=== PATIENT | female | born 1995 | race Caucasian/White ===

== ENCOUNTER 2017-03-31 05:54 | Emergency (ER) | payer OTHER ==
[2017-03-31 05:56] VITALS: BP 150/70; PULSE 130; RESP 18; TEMP 97.5; O2SAT 100
[2017-03-31] MEDS ORDERED: MORPHINE SULFATE 4 MG/ML INJ IM ONE (06:15)
[2017-03-31] MEDS ORDERED: SULFAMETHOXAZOLE-TRIMETHOPRIM DS 800-160 MG TAB PO ONE (06:15)
[2017-03-31] MEDS ORDERED: BACT800T5 PO (06:18)
[2017-03-31] MEDS ORDERED: ULTR50TA5 PO (06:18)
--- NOTE | 2017-03-31 06:19 | PD ---
HPI . Left cheek pain Chief Complaint: Facial Pain or Swelling Time Seen by Provider: 06:10 Travel History International Travel<30 days: No Contact w/Intl Traveler<30days: No Traveled to known affect area: No History of Present Illness HPI This patient presents with chief complaint of pain and swelling of the left cheek. Onset was 24 hours ago. She states that both the pain and swelling have been getting progressively worse over 4 hours. She now rates the pain as 10/10. She states that she has treated it with Neosporin and aspirin without relief. She denies fever. No modifying factors. PFSH Past Medical History ADHD: No Asthma: Yes Weight (Kg): 3 Anxiety: Yes Cancer: No Cardiovascular Problems: No Diabetes: No Diminished Hearing: No Headaches: No Psychiatric: No Migraines: No Seizures: No Thyroid Disease: No Ulcer: No ?: Not : 0 Para: 0 Past Surgical History Appendectomy: Yes Cholecystectomy: No Other Surgery: Yes (APPENDIX REMOVED) Social History Alcohol Use: No Tobacco Use: No Substance Use: Yes Allergies-Medications (Allergen,Severity, Reaction): Coded Allergies: acetaminophen (Unverified Allergy, Unknown, 03/31/17) Reported Meds & Prescriptions Reported Meds & Active Scripts Active No Active Prescriptions or Reported Medications Review of Systems Except as stated in HPI: all other systems reviewed are Neg General / Constitutional: No: Fever, Chills Skin: Positive Change in Pigmentation, Positive Other (swelling of the left cheek) Physical Exam Narrative GENERAL: This patient is extremely anxious appearing. She is tearful. SKIN: Redness, swelling, warmth and tenderness of the left cheek. There is no fluctuance. HEAD: Normocephalic/atraumatic. EYES: Pupils are equal. Extraocular movements are intact. NECK: Supple with no cervical lymphadenopathy. CARDIOVASCULAR: Sinus tachycardia. RESPIRATORY: Nonlabored respirations. MUSCULOSKELETAL: Atraumatic. NEUROLOGICAL: Nonfocal. PSYCHIATRIC: Appropriate mood and affect. Data Data Last Documented VS Vital Signs Date Time Temp Pulse Resp B/P (MAP) Pulse Ox O2 Delivery O2 Flow Rate FiO2 03/31/17 05:56 97.5 130 18 150/70 (96) 100 Room Air Orders Orders Morphine Inj (Morphine Inj) (03/31/17 06:15) Sulfamet-Trimeth Ds 800-160 Mg (Bactrim (03/31/17 06:15) [facility] Medical Decision Making Medical Screen Exam Complete: Yes Emergency Medical Condition: Yes Differential Diagnosis My differential diagnosis includes but is not limited to localized wound infection, cellulitis, abscess Narrative Course This patient presents with an early abscess of the left cheek. It is not yet ready to be drained. I will treat her with Bactrim. She is extremely anxious and is complaining of severe pain. I will give her a shot of morphine. She reports that she cannot take Tylenol because of liver issues. Diagnosis Primary Impression: Abscess Patient Instructions: Abscess (ED), General Instructions Additional Instructions: Warm compresses to your cheek as much as she can. Return in 2 days for recheck. Antibiotics as directed. Scripts Tramadol (Ultram) 50 Mg Tab 50 MG PO Q4H Y for PAIN, #12 TAB 0 Refills Prov: Mylene Ramirez MD 03/31/17 Sulfamethoxazole-Trimethoprim (Bactrim DS) 800-160 Mg Tab 1 TAB PO BID for Infection, #20 TAB 0 Refills Prov: Mylene Ramirez MD 03/31/17 Disposition: 01 DISCHARGE HOME Condition: Stable Mylene Ramirez MD Mar 31, 2017 06:19
== END 2017-03-31 06:31 | disposition home or self-care (01) ==
LOC: NEPE 05:54
DX: L02.01 Cutaneous abscess of face (principal); J45.909 Unspecified asthma, uncomplicated
CPT/HCPCS: 96372; 99284; J2270

== ENCOUNTER 2017-04-01 17:21 | Inpatient (IN) | payer OTHER ==
[~2017-04-01] VITALS: Ht 170.2 cm; Wt 70.0 kg
[~2017-04-01 17:21] MED LIST: BACT800T5 PO; ULTR50TA5 PO
[2017-04-01 17:24] VITALS: BP 137/98; PULSE 145; RESP 22; TEMP 99.7; O2SAT 99
[2017-04-01] MEDS ORDERED: VANCOMYCIN INJ 1,000 MG in SODIUM CHLOR 0.9% 250 ML INJ 250 ML IV ONE (18:15)
[2017-04-01] MEDS ORDERED: KETOROLAC TROMETHAMINE 30 MG/ML (IVP) VIAL IVP ONE (18:15)
[2017-04-01 18:45] LABS: AUTOMATED NEUTROPHIL # 12.5 TH/MM3 (1.8-7.7); BASOPHIL # 0.1 TH/MM3 (0-0.2); BASOPHIL % 0.4 % (0.0-2.0); EOSINOPHIL # 0.1 TH/MM3 (0-0.4); EOSINOPHIL % 0.8 % (0.0-4.0); HEMATOCRIT 42.5 % (35.0-46.0); HEMO FLAGS DIFF FINAL; LYMPH % 12.6 % (9.0-44.0); MEAN CELL VOLUME 91.2 FL (80.0-100.0); MEAN CORPUSCULAR HEMOGLOBIN 30.1 PG (27.0-34.0); MEAN CORPUSCULAR HGB CONC 33.1 % (32.0-36.0); MONO % 8.4 % (0.0-8.0); NEUT % 77.8 % (16.0-70.0); PLATELET COUNT 413 TH/MM3 (150-450); RED BLOOD COUNT 4.66 MIL/MM3 (4.00-5.30); RED CELL DISTRIBUTION WIDTH 13.5 % (11.6-17.2); WHITE BLOOD COUNT 16.1 TH/MM3 (4.0-11.0)
--- NOTE | 2017-04-01 18:49 | PD ---
HPI Chief Complaint: Skin Problem Time Seen by Provider: 18:06 Travel History International Travel<30 days: No Contact w/Intl Traveler<30days: No Traveled to known affect area: No History of Present Illness HPI This is a 21-year-old female history bipolar disorder, presents today with slight worsening swelling and redness to the left face. Patient was seen yesterday at the hospital and diagnosed with a superficial skin abscess. She was started on Bactrim. She reports over last 24 hours she's had at least double of the swelling with redness running down her neck. She denies any fevers, chills or denies any difficulty swallowing. She has no history of previous MRSA. She states that the infection started as a excoriated area that seemingly became infected. PFSH Past Medical History ADHD: No Asthma: Yes Weight (Kg): 3 Anxiety: Yes Cancer: No Cardiovascular Problems: No Diabetes: No Diminished Hearing: No Headaches: No Psychiatric: No Migraines: No Seizures: No Thyroid Disease: No Ulcer: No ?: Not : 0 Para: 0 Past Surgical History Appendectomy: Yes Cholecystectomy: No Other Surgery: Yes (APPENDIX REMOVED) Social History Alcohol Use: Yes (on occasion) Tobacco Use: No Substance Use: No (denies) Allergies-Medications (Allergen,Severity, Reaction): Coded Allergies: acetaminophen (Unverified Allergy, Unknown, 03/31/17) Reported Meds & Prescriptions Reported Meds & Active Scripts Active Ultram (Tramadol HCl) 50 Mg Tab 50 Mg PO Q4H PRN Bactrim DS (Sulfamethoxazole-Trimethoprim) 800-160 Mg Tab 1 Tab PO BID Review of Systems Except as stated in HPI: all other systems reviewed are Neg General / Constitutional: No: Fever, Chills Eyes: Positive: Other (orbital swelling and redness) HENT: Positive: Other (increased swelling and pain and redness to the left side of her face and periorbital swelling.), No: Headaches, Neck Pain, Masses Cardiovascular: No: Chest Pain or Discomfort, Palpitations Respiratory: No: Cough, Shortness of Breath Gastrointestinal: No: Nausea, Vomiting Musculoskeletal: No: Myalgias, Weakness, Pain Skin: Positive Lesions (to the left cheek that started the infection), Positive Other (sialitis to the left face and neck), No Rash Neurologic: No: Weakness, Dizziness, Headache Physical Exam Narrative GENERAL: Well developed well-nourished female who has obvious cellulitis and swelling to her left side of her face which extends to the left lower neck. SKIN: Focused skin assessment warm/dry. Cellulitis and swelling to left face and neck. HEAD: Atraumatic. Normocephalic. EYES: Pupils equal and round. Patient does have periorbital edema from the cellulitis. Extraocular muscles were intact. There does not appear to be any proptosis. No scleral icterus. No injection or drainage. ENT: Mucous membranes pink and moist. NECK: Trachea midline. Cellulitis to the left lateral neck. Supple full range of motion. CARDIOVASCULAR: Tachycardic with a rate in the low 100s 120 on my examination. No murmur appreciated. RESPIRATORY: No accessory muscle use. Clear to auscultation. Breath sounds equal bilaterally. GASTROINTESTINAL: Abdomen soft, non-tender, nondistended. Hepatic and splenic margins not palpable. MUSCULOSKELETAL: No obvious deformities. No clubbing. No cyanosis. No edema. NEUROLOGICAL: Awake and alert. No obvious cranial nerve deficits. Motor grossly within normal limits. Normal speech. PSYCHIATRIC: Appropriate mood and affect; insight and judgment normal. Data Data Last Documented VS Vital Signs Date Time Temp Pulse Resp B/P (MAP) Pulse Ox O2 Delivery O2 Flow Rate FiO2 04/01/17 17:57 120 19 04/01/17 17:24 99.7 137/98 (111) 99 Orders Orders Basic Metabolic Panel (Bmp) (04/01/17 18:06) Complete Blood Count With Diff (04/01/17 18:06) Blood Culture (04/01/17 18:06) Iv Access Insert/Monitor (04/01/17 18:06) Ketorolac Inj (Toradol Inj) (04/01/17 18:15) Vancomycin Inj (Vancomycin Inj) (04/01/17 18:15) Ct Soft Tiss Neck W Iv Cont (04/01/17 ) Labs Laboratory Tests Test 04/01/17 18:30 White Blood Count 16.1 TH/MM3 Red Blood Count 4.66 MIL/MM3 Hemoglobin 14.0 GM/DL Hematocrit 42.5 % Mean Corpuscular Volume 91.2 FL Mean Corpuscular Hemoglobin 30.1 PG Mean Corpuscular Hemoglobin Concent 33.1 % Red Cell Distribution Width 13.5 % Platelet Count 413 TH/MM3 Mean Platelet Volume 9.5 FL Neutrophils (%) (Auto) 77.8 % Lymphocytes (%) (Auto) 12.6 % Monocytes (%) (Auto) 8.4 % Eosinophils (%) (Auto) 0.8 % Basophils (%) (Auto) 0.4 % Neutrophils # (Auto) 12.5 TH/MM3 Lymphocytes # (Auto) 2.0 TH/MM3 Monocytes # (Auto) 1.3 TH/MM3 Eosinophils # (Auto) 0.1 TH/MM3 Basophils # (Auto) 0.1 TH/MM3 CBC Comment DIFF FINAL Differential Comment MDM Medical Decision Making Medical Screen Exam Complete: Yes Emergency Medical Condition: Yes Differential Diagnosis Cellulitis, failed outpatient antibiotics versus, left facial abscess, versus orbital cellulitis Narrative Course 21-year-old female presents with left sided facial swelling redness and pain. The patient was seen yesterday and diagnosed with a superficial abscess to the left face. The patient was started on Bactrim. The patient states that the pain and swelling has gotten significantly worse. The patient has obvious cellulitis to the left face and neck. White count is 16,000. The rest of her labs are pending at this time. CT scan of the face and neck/soft tissue are pending at this time she'll be signed out to Dr. Orellana anticipate she will be admitted. She's been started on vancomycin 1 g I V times one dose. Blood cultures have been sent. Diagnosis Primary Impression: left face and neck cellulitis Additional Impression: failed outpatient antibiotics Александр Krishnan MD Apr 01, 2017 18:49
[2017-04-01 19:00] LABS: BICARBONATE 25.8 MEQ/L (21.0-32.0); POTASSIUM 3.3 MEQ/L (3.5-5.1)
[2017-04-01] MEDS ORDERED: IOHEXOL 350 MG/ML 10 ML VIAL (for RAD DIAG) IVCONTRAST ONE (19:43)
[2017-04-01 20:00] VITALS: BP 120/68; PULSE 105; PULSE 130; RESP 20; TEMP 97.2; O2SAT 99
--- NOTE | 2017-04-01 20:22 | RADRPT ---
EXAM DATE/TIME: 04/01/2017 19:42 [facility] COMPARISON: No previous studies available for comparison. INDICATIONS : Left sided facial and neck swelling. IV CONTRAST: 75 cc Omnipaque 350 (iohexol) IV RADIATION DOSE: 16.79 CTDIvol (mGy) MEDICAL HISTORY : None SURGICAL HISTORY : None. ENCOUNTER: Initial ACUITY: 2 days PAIN SCALE: 7/10 LOCATION: Left facial TECHNIQUE: Volumetric scanning of the neck was performed. Using automated exposure control and adjustment of th e mA and/or kV according to patient size, radiation dose was kept as low as reasonably achievable to obtain optimal diagnostic quality images. DICOM format image data is available electronically for r eview and comparison. FINDINGS: There is extensive left periorbital preseptal soft tissue swelling and marked swelling over the left malar eminence with subcutaneous edema and fat stranding and non-loculated fluid. No discrete or drai nable abscess is identified. There are enlarged lymph nodes in the left retromandibular and submandib ular region measuring up to 2 cm in diameter. Borderline enlarged lymph nodes in the left mid and low er neck as well. The airway obstructing lesions or foreign bodies. Both globes intact. No acute bony abnormalities. No significant sinus disease identified. CONCLUSION: 1. Extensive left-sided facial swelling extending into the anterior neck with nonloculated fluid pres ent. No discrete or drainable abscess. Findings characteristic of a diffuse cellulitis. There is pres eptal periorbital soft tissue swelling. Globes intact. No significant sinus disease. Multiple enlarge d lymph nodes in the left neck measure 2 cm in diameter. Elver Barcenas MD on April 01, 2017 at 20:16 Board Certified Radiologist. This report was verified electronically.
--- NOTE | 2017-04-01 20:31 | PD ---
Physical Exam Date Seen by Provider: Apr 01, 2017 Time Seen by Provider: 19:00 Narrative Patient signed out to me at [address] Krishnan, please see previous notes for further details. Awaiting CAT scan for further evaluation. Patient has obvious left facial cellulitis and is currently getting IV antibiotics. Laboratory Tests Test 04/01/17 18:30 White Blood Count 16.1 TH/MM3 (4.0-11.0) Neutrophils (%) (Auto) 77.8 % (16.0-70.0) Monocytes (%) (Auto) 8.4 % (0.0-8.0) Neutrophils # (Auto) 12.5 TH/MM3 (1.8-7.7) Monocytes # (Auto) 1.3 TH/MM3 (0-0.9) Sodium Level 134 MEQ/L (136-145) Potassium Level 3.3 MEQ/L (3.5-5.1) Estimat Glomerular Filtration Rate 79 ML/MIN (>89) Last [address] 04/01/17 0000 Signed Impressions: Service Date/Time: Saturday, April 01, 2017 19:42 - CONCLUSION: 1. Extensive left-sided facial swelling extending into the anterior neck with nonloculated fluid present. No discrete or drainable abscess. Findings characteristic of a diffuse cellulitis. There is preseptal periorbital soft tissue swelling. Globes intact. No significant sinus disease. Multiple enlarged lymph nodes in the left neck measure 2 cm in diameter. Elver Barcenas MD CAT scan did not show any signs of drainable abscess. At this point, case is discussed with Dr. Cha for admission for further treatment. Data Data Last Documented VS Vital Signs Date Time Temp Pulse Resp B/P (MAP) Pulse Ox O2 Delivery O2 Flow Rate FiO2 04/01/17 17:57 120 19 04/01/17 17:24 99.7 137/98 (111) 99 Orders Orders Basic Metabolic Panel (Bmp) (04/01/17 18:06) Complete Blood Count With Diff (04/01/17 18:06) Blood Culture (04/01/17 18:06) Iv Access Insert/Monitor (04/01/17 18:06) Ketorolac Inj (Toradol Inj) (04/01/17 18:15) Vancomycin Inj (Vancomycin Inj) (04/01/17 18:15) Ct Soft Tiss Neck W Iv Cont (04/01/17 ) Lactic Acid Sepsis Protocol (04/01/17 19:07) Iohexol 350 Inj (Omnipaque 350 Inj) (04/01/17 19:43) Admit Order (Ed Use Only) (04/01/17 20:29) Labs Laboratory Tests Test 04/01/17 18:30 White Blood Count 16.1 TH/MM3 Red Blood Count 4.66 MIL/MM3 Hemoglobin 14.0 GM/DL Hematocrit 42.5 % Mean Corpuscular Volume 91.2 FL Mean Corpuscular Hemoglobin 30.1 PG Mean Corpuscular Hemoglobin Concent 33.1 % Red Cell Distribution Width 13.5 % Platelet Count 413 TH/MM3 Mean Platelet Volume 9.5 FL Neutrophils (%) (Auto) 77.8 % Lymphocytes (%) (Auto) 12.6 % Monocytes (%) (Auto) 8.4 % Eosinophils (%) (Auto) 0.8 % Basophils (%) (Auto) 0.4 % Neutrophils # (Auto) 12.5 TH/MM3 Lymphocytes # (Auto) 2.0 TH/MM3 Monocytes # (Auto) 1.3 TH/MM3 Eosinophils # (Auto) 0.1 TH/MM3 Basophils # (Auto) 0.1 TH/MM3 CBC Comment DIFF FINAL Differential Comment Blood Urea Nitrogen 7 MG/DL Creatinine 0.90 MG/DL Random Glucose 91 MG/DL Calcium Level 9.4 MG/DL Sodium Level 134 MEQ/L Potassium Level 3.3 MEQ/L Chloride Level 99 MEQ/L Carbon Dioxide Level 25.8 MEQ/L Anion Gap 9 MEQ/L Estimat Glomerular Filtration Rate 79 ML/MIN [facility] Medical Record Reviewed: Yes Supervised Visit with ROCIO: No Diagnosis Primary Impression: left face and neck cellulitis Additional Impression: failed outpatient antibiotics Admitting Information Admitting Physician Requests: Admit Luda Wong MD Apr 01, 2017 20:31
[2017-04-01] MEDS: SODIUM CHLOR 0.9% 1000 ML INJ 1,000 ML IV SCH (20:38)
--- NOTE | 2017-04-01 20:42 | HHI.HP ---
[facility] Service [facility] Primary Care Physician No Primary Care Physician Admission Diagnosis left facial cellulitis Diagnoses: (1) Sepsis Diagnosis: Principal (2) Facial cellulitis Diagnosis: Principal (3) Hypokalemia Diagnosis: Principal Travel History International Travel<30 Days: No Contact w/Intl Traveler <30 Da: No Traveled to Known Affected Are: No History of Present Illness This is a 21-year-old female with a PMH of Bipolar Disorder and Anxiety presented to the ER with complaints of left facial swelling and redness. Was seen in ER for similar complaints on 03/31/17, d/c'd w/ Bactrim and Tramadol. Returns today w/ progressive redness/swelling of left face. Denies fever or chills. No injury/trauma or skin break that she can recall. On arrival, BP 137 /98, HR 145, O2 sat 99% on RA, Temp 99.7. WBC 16.1. Chemistry unremarkable except for K+ 3.3. CT Neck with extensive left-sided facial swelling extending to anterior neck with nonloculated fluid present, no discrete drainable abscess , findings could or sick of diffuse cellulitis. S/p Vanc IV in ER. Review of Systems Except as stated in HPI: all other systems reviewed are Neg ROS: 14 point review of systems otherwise negative. Past Family Social History Past Medical History PMH: Bipolar Disorder and Anxiety Past Surgical History PAST SURGICAL HISTORY: Appendectomy Allergies: Coded Allergies: acetaminophen (Unverified Allergy, Unknown, 03/31/17) Family History PAST FAMILY HISTORY: Reviewed. No h/o DM or CAD Social History PAST SOCIAL HISTORY: Occasional alcohol. Negative for tobacco or drugs. Physical Exam Vital Signs Vital Signs Date Time Temp Pulse Resp B/P (MAP) Pulse Ox O2 Delivery O2 Flow Rate FiO2 04/01/17 17:57 120 19 04/01/17 17:24 99.7 145 22 137/98 (111) 99 Physical Exam PE: GENERAL: Young white female in no acute distress. HEENT: PERRLA, EOMI. No scleral icterus or conjunctival pallor. No lid lag or facial droop. Extensive left-sided facial/periorbital swelling and erythema extending to left neck CARDIOVASCULAR: Regular rate and rhythm. No obvious murmurs to auscultation. No chest tenderness to palpation. RESPIRATORY: No obvious rhonchi or wheezing. Clear to auscultation. Breath sounds equal bilaterally. GASTROINTESTINAL: Abdomen soft, non-tender, nondistended. BS normal. MUSCULOSKELETAL: Extremities without clubbing, cyanosis, or edema. No obvious deformities. NEUROLOGICAL: Awake, alert and oriented x4. No focal neurologic deficits. Moving both upper and lower extremities spontaneously. Laboratory Laboratory Tests Test 04/01/17 18:30 White Blood Count 16.1 Red Blood Count 4.66 Hemoglobin 14.0 Hematocrit 42.5 Mean Corpuscular Volume 91.2 Mean Corpuscular Hemoglobin 30.1 Mean Corpuscular Hemoglobin Concent 33.1 Red Cell Distribution Width 13.5 Platelet Count 413 Mean Platelet Volume 9.5 Neutrophils (%) (Auto) 77.8 Lymphocytes (%) (Auto) 12.6 Monocytes (%) (Auto) 8.4 Eosinophils (%) (Auto) 0.8 Basophils (%) (Auto) 0.4 Neutrophils # (Auto) 12.5 Lymphocytes # (Auto) 2.0 Monocytes # (Auto) 1.3 Eosinophils # (Auto) 0.1 Basophils # (Auto) 0.1 CBC Comment DIFF FINAL Differential Comment Blood Urea Nitrogen 7 Creatinine 0.90 Random Glucose 91 Calcium Level 9.4 Sodium Level 134 Potassium Level 3.3 Chloride Level 99 Carbon Dioxide Level 25.8 Anion Gap 9 Estimat Glomerular Filtration Rate 79 Date/Time Source Procedure Growth Status 04/01/17 18:30 Blood Peripheral Aerobic Blood Culture Pending Received 04/01/17 18:30 Blood Peripheral Anaerobic Blood Culture Pending Received Result Diagram: 04/01/17 1830 04/01/17 1830 Caprini VTE Risk Assessment Caprini VTE Risk Assessment: No/Low Risk (score <= 1) Caprini Risk Assessment Model Point Value = 1 Point Value = 2 Point Value = 3 Point Value = 5 Age 41-60 Minor surgery BMI > 25 kg/m2 Swollen legs Varicose veins or History of unexplained or recurrent spontaneous Oral contraceptives or hormone replacement Sepsis (< 1 month) Serious lung disease, including pneumonia (< 1 month) Abnormal pulmonary function Acute myocardial infarction Congestive heart failure (< 1 month) History of inflammatory bowel disease Medical patient at bed rest Age 61-74 Arthroscopic surgery Major open surgery (> 45 min) Laparoscopic surgery (> 45 min) Malignancy Confined to bed (> 72 hours) Immobilizing plaster cast Central venous access Age >= 75 History of VTE Family history of VTE Factor V Leiden Prothrombin [id number] Lupus anticoagulant Anticardiolipin antibodies Elevated serum homocysteine Heparin-induced thrombocytopenia Other congenital or acquired thrombophilia Stroke (< 1 month) Elective arthroplasty Hip, pelvis, or leg fracture Acute spinal cord injury (< 1 month) Prophylaxis Regimen Total Risk Factor Score Risk Level Prophylaxis Regimen 0-1 Low Early ambulation 2 Moderate Order ONE of the following: *Sequential Compression Device (SCD) *Heparin 5000 units SQ BID 3-4 Higher Order ONE of the following medications: *Heparin 5000 units SQ TID *Enoxaparin/Lovenox 40 mg SQ daily (WT < 150 kg, CrCl > 30 mL/min) *Enoxaparin/Lovenox 30 mg SQ daily (WT < 150 kg, CrCl > 10-29 mL/min) *Enoxaparin/Lovenox 30 mg SQ BID (WT < 150 kg, CrCl > 30 mL/min) AND/OR *Sequential Compression Device (SCD) 5 or more Highest Order ONE of the following medications: *Heparin 5000 units SQ TID (Preferred with Epidurals) *Enoxaparin/Lovenox 40 mg SQ daily (WT < 150 kg, CrCl > 30 mL/min) *Enoxaparin/Lovenox 30 mg SQ daily (WT < 150 kg, CrCl > 10-29 mL/min) *Enoxaparin/Lovenox 30 mg SQ BID (WT < 150 kg, CrCl > 30 mL/min) AND *Sequential Compression Device (SCD) Assessment and Plan Problem List: (1) Sepsis ICD Code: A41.9 - Sepsis, unspecified organism (2) Facial cellulitis ICD Code: L03.211 - Cellulitis of face (3) Hypokalemia ICD Code: E87.6 - Hypokalemia Assessment and Plan A/P: 1. Sepsis: Temp 99.7, HR 140's, WBC 16, Source-Left Facial Cellulitis. S/p Blood Cultures, IV Vanc in ER. Follow up cultures, continue IV Abx. 2. Facial Cellulitis: CT Neck w/ extensive facial cellulitis extending to anterior neck w/ no discrete abscess noted, images reviewed by me. S/p Vanc in ER, will continue w/ Vanc, add Unasyn. Follow up cultures. Analgesics/ antiemetics as needed. 3. Hypokalemia: Mild. K+ 3.3. Will recheck and replace as needed. 4. DVT Prophylaxis: SCD/Teds. 5. Social work for d/c planning 6. Case discussed at length w/ ER physician. Physician Certification 2 Midnight Certification Type: Admission for Inpatient Services Order for Inpatient Services The services are ordered in accordance with Medicare regulations or non- Medicare payer requirements, as applicable. In the case of services not specified as inpatient-only, they are appropriately provided as inpatient services in accordance with the 2-midnight benchmark. Estimated LOS (days): 2 days is the estimated time the patient will need to remain in the hospital, assuming treatment plan goals are met and no additional complications. Post-Hospital Plan: Not yet determined Crystal Cha MD Apr 01, 2017 20:42
[2017-04-01] MEDS ORDERED: SODIUM CHLORIDE 0.9% FLUSH 10 ML FLUSH IV FLUSH PRN (20:45)
[2017-04-01] MEDS ORDERED: MAGNESIUM HYDROXIDE SUSP 30 ML CUP PO PRN (20:45)
[2017-04-01] MEDS ORDERED: BISACODYL 10 MG SUPP RECTAL PRN (20:45)
[2017-04-01] MEDS ORDERED: LACTULOSE SYRUP 20 GM/30 ML CUP PO PRN (20:45)
[2017-04-01] MEDS ORDERED: Vancomycin Consult Pharmacy 1 EA OTHER SCH (20:45)
[2017-04-01] MEDS ORDERED: ONDANSETRON HCL 4 MG/2 ML VIAL IVP PRN (20:45)
[2017-04-01] MEDS ORDERED: SENNOSIDES 8.6 MG TAB PO PRN (20:45)
[2017-04-01] MEDS: DOCUSATE SODIUM 50 MG/SENNA 8.6 MG TAB PO SCH (21:00)
[2017-04-01 21:39] VITALS: BP 130/76
[2017-04-01] MEDS: AMPICILLIN-SULBACTAM INJ 3 GM in SODIUM CHLORIDE 0.9% INJ 100 ML IV SCH (22:00)
[2017-04-01] MEDS: SODIUM CHLORIDE 0.9% FLUSH 10 ML FLUSH IV FLUSH SCH (22:41)
[2017-04-01] MEDS: MORPHINE SULFATE 4 MG/ML INJ IV PUSH PRN (22:41)
[2017-04-02] VITALS (7 sets, daily range): BP systolic 109–153; BP diastolic 59–91; PULSE 69–104; RESP 18–20; TEMP 97.6–98.4; O2SAT 96–100
[2017-04-02 01:55] LABS: LACTIC ACID GHOST NOT REPORTABLE
[2017-04-02] MEDS ORDERED: VANCOMYCIN 1,000 MG/NS 250 ML IV SCH ×2 (02:00)
[2017-04-02] MEDS: AMPICILLIN-SULBACTAM INJ 3 GM in SODIUM CHLORIDE 0.9% INJ 100 ML IV SCH ×3 (03:34→17:47)
[2017-04-02] MEDS: SODIUM CHLOR 0.9% 1000 ML INJ 1,000 ML IV SCH ×3 (06:26→21:21)
[2017-04-02] MEDS: VANCOMYCIN INJ 1,250 MG in SODIUM CHLOR 0.9% 250 ML INJ 250 ML IV SCH ×2 (06:26→18:57)
[2017-04-02 08:53] LABS: ANION GAP 12 MEQ/L (5-15); AST (GOT) 8 U/L (15-37); BICARBONATE 20.4 MEQ/L (21.0-32.0); BLOOD UREA NITROGEN 10 MG/DL (7-18); CHLORIDE 106 MEQ/L (98-107); GLOMERULAR FILTRATION RATE 99 ML/MIN (>89); POTASSIUM 3.3 MEQ/L (3.5-5.1); SODIUM (NA) 138 MEQ/L (136-145)
[2017-04-02 08:56] LABS: ALKALINE PHOSPHATASE 97 U/L (45-117); ALT (GPT) 24 U/L (10-53); TOTAL BILIRUBIN ADULT 0.2 MG/DL (0.2-1.0)
[2017-04-02] MEDS: SODIUM CHLORIDE 0.9% FLUSH 10 ML FLUSH IV FLUSH SCH ×2 (09:00→21:21)
[2017-04-02] MEDS: DOCUSATE SODIUM 50 MG/SENNA 8.6 MG TAB PO SCH ×2 (09:00→21:00)
[2017-04-02] MEDS: MORPHINE SULFATE 4 MG/ML INJ IV PUSH PRN ×2 (09:17→21:27)
[2017-04-02 11:45] LABS: AUTOMATED NEUTROPHIL # 7.2 TH/MM3 (1.8-7.7); BASOPHIL # 0.1 TH/MM3 (0-0.2); BASOPHIL % 0.8 % (0.0-2.0); EOSINOPHIL # 0.5 TH/MM3 (0-0.4); EOSINOPHIL % 4.8 % (0.0-4.0); HEMATOCRIT 40.2 % (35.0-46.0); HEMO FLAGS DIFF FINAL; LYMPH % 21.7 % (9.0-44.0); LYMPHOCYTE # 2.4 TH/MM3 (1.0-4.8); MEAN CELL VOLUME 91.8 FL (80.0-100.0); MEAN CORPUSCULAR HEMOGLOBIN 30.6 PG (27.0-34.0); MEAN CORPUSCULAR HGB CONC 33.3 % (32.0-36.0); MONO % 6.8 % (0.0-8.0); NEUT % 65.9 % (16.0-70.0); PLATELET COUNT 363 TH/MM3 (150-450); RED BLOOD COUNT 4.38 MIL/MM3 (4.00-5.30); RED CELL DISTRIBUTION WIDTH 13.5 % (11.6-17.2)
[2017-04-02] MEDS ORDERED: POTASSIUM CHLORIDE 20 MEQ CONTROLLED RELEASE TAB PO ONE (16:00)
--- NOTE | 2017-04-02 16:41 | HHI.PR ---
Subjective Remarks Pt complain of pain in left side of face. She feels discouraged w the way it is looking. Shows me pics of how rapidly the swelling progressed. Feels some swelling on the right side however denies any redness. Tells me that it all started as a small induration which she felt that needed to be expressed which she did but there was nothing coming out, she went to bed and it rapidly got worst. Objective Vitals Vital Signs Date Time Temp Pulse Resp B/P (MAP) Pulse Ox O2 Delivery O2 Flow Rate FiO2 04/02/17 12:00 98.2 100 18 121/91 (101) 98 04/02/17 09:22 20 04/02/17 08:00 98.2 76 18 114/68 (83) 100 04/02/17 04:00 98.4 89 20 109/59 (76) 99 04/02/17 00:00 98.1 104 20 120/68 (85) 99 04/01/17 21:39 80 16 130/76 (94) 99 04/01/17 20:00 97.2 105 20 120/68 (85) 99 04/01/17 20:00 130 04/01/17 17:57 120 19 04/01/17 17:24 99.7 145 22 137/98 (111) 99 I/O 04/01/17 04/01/17 04/01/17 04/02/17 04/02/17 04/02/17 07:00 15:00 23:00 07:00 15:00 23:00 Intake Total 2300 ml Balance 2300 ml Intake Oral 1200 ml IV Total 1100 ml # Voids 1 # Bowel Movements 0 Result Diagram: 04/02/17 1043 04/02/17 0625 Imaging Last Impressions Neck CT 04/01/17 0000 Signed Impressions: Service Date/Time: Saturday, April 01, 2017 19:42 - CONCLUSION: 1. Extensive left-sided facial swelling extending into the anterior neck with nonloculated fluid present. No discrete or drainable abscess. Findings characteristic of a diffuse cellulitis. There is preseptal periorbital soft tissue swelling. Globes intact. No significant sinus disease. Multiple enlarged lymph nodes in the left neck measure 2 cm in diameter. Elver Barcenas MD Objective Remarks GENERAL: Young white female in no acute distress. HEENT: EOMI. Extensive left-sided facial/periorbital swelling and erythema extending to left neck, she is now able to open her left eye. CARDIOVASCULAR: Regular rate and rhythm. No obvious murmurs to auscultation. No chest tenderness to palpation. RESPIRATORY: No obvious rhonchi or wheezing. Clear to auscultation. Breath sounds equal bilaterally. GASTROINTESTINAL: Abdomen soft, non-tender, nondistended. BS normal. MUSCULOSKELETAL: Extremities without edema. No obvious deformities. NEUROLOGICAL: Awake, alert and oriented x4. looking at herself continuously through a small mirror, wants to put bandage over the swelling. A/P Problem List: (1) Sepsis ICD Code: A41.9 - Sepsis, unspecified organism (2) Facial cellulitis ICD Code: L03.211 - Cellulitis of face (3) Hypokalemia ICD Code: E87.6 - Hypokalemia Assessment and Plan 1. Sepsis: Temp 99.7, HR 140's, WBC 16, Source-Left Facial Cellulitis. blood cx neg x 1 day, IV Vanc in ER. Continue IV Abx. There seems to be some improvement w IV vanco. Pt able to open her left eyelids. Swelling is still impressive. Will consult ID for assistance w abx 2. Facial Cellulitis: CT Neck w/ extensive facial cellulitis extending to anterior neck w/ no discrete abscess noted, also there is pre-septal swelling. S/p Vanc in ER, currently on Vanc and Unasyn. Follow up cultures. Analgesics/ antiemetics as needed. if worsening, will consult maxillo-facial sx. 3. Hypokalemia: Mild. K+ 3.3. replaced. 4. DVT Prophylaxis: SCD/Teds. Discharge Planning d/c pending further work-up and clinical improvement. Ashli Montes MD Apr 02, 2017 16:41
--- NOTE | 2017-04-02 17:22 | PD.ID.CON ---
History of Present Illness Service ID Consult Requested By Reason for Consult Evaluation and Mment of left facial cellulitis. Primary Care Physician No Primary Care Physician Diagnoses: History of Present Illness is a 21y/o CF with PMH of Bipolar Disorder and Anxiety presented to the ER with complaints of left facial swelling and redness. Was seen in ER for similar complaints on 03/31/17, d/c'd w/ Bactrim and Tramadol. Returns today w/ progressive redness/swelling of left face. Denies fever or chills. No injury/ trauma or skin break that she can recall. On arrival, BP 137/98, HR 145, O2 sat 99% on RA, Temp 99.7. WBC 16.1. Chemistry unremarkable except for K+ 3.3. CT Neck with extensive left-sided facial swelling extending to anterior neck with nonloculated fluid present, no discrete drainable abscess, findings s/o diffuse cellulitis. S/p Vanc IV in ER. Pt has recd 1 dose of Clinda, then placed on Unasyn and Vanco IV. ID consulted for evaluation and Mment of left facial cellulitis. Review of Systems Constitutional: DENIES: Diaphoretic episodes, Fatigue, Fever, Weight gain, Weight loss, Chills, Dizziness, Change in appetite, Night Sweats Endocrine: DENIES: Abnorml menstrual pattern, Heat/cold intolerance, Polydipsia , Polyuria, Polyphagia Eyes: DENIES: Blurred vision, Diplopia, Eye inflammation, Eye pain, Vision loss , Photosensitivity, Double Vision Ears, nose, mouth, throat: DENIES: Tinnitus, Hearing loss, Vertigo, Nasal discharge, Oral lesions, Throat pain, Hoarseness, Ear Pain, Running Nose, Epistaxis, Sinus Pain, Toothache, Odynophagia Respiratory: DENIES: Apneas, Cough, Snoring, Wheezing, Hemoptysis, Sputum production, Shortness of breath Cardiovascular: DENIES: Chest pain, Palpitations, Syncope, Dyspnea on Exertion , PND, Lower Extremity Edema, Orthopnea, Claudication Gastrointestinal: DENIES: Abdominal pain, Black stools, Bloody stools, Constipation, Diarrhea, Nausea, Vomiting, Difficulty Swallowing, Anorexia Genitourinary: DENIES: Abnormal vaginal bleeding, Dysmenorrhea, Dyspareunia, Sexual dysfunction, Urinary frequency, Urinary incontinence, Urgency, Hematuria , Dysuria, Nocturia, Vaginal discharge Musculoskeletal: DENIES: Joint pain, Muscle aches, Stiffness, Joint Swelling, Back pain, Neck pain Integumentary: DENIES: Abnormal pigmentation, Pruritus, Rash, Nail changes, Breast masses, Breast skin changes, Nipple discharge Hematologic/lymphatic: DENIES: Bruising, Lymphadenopathy Immunologic/allergic: DENIES: Eczema, Urticaria Neurologic: DENIES: Abnormal gait, Headache, Localized weakness, Paresthesias, Seizures, Speech Problems, Tremor, Poor Balance Psychiatric: DENIES: Anxiety, Confusion, Mood changes, Depression, Hallucinations, Agitation, Suicidal Ideation, Homicidal Ideation, Delusions Except as stated in HPI: all other systems reviewed are Neg Past Family Social History Allergies: Coded Allergies: acetaminophen (Unverified Allergy, Unknown, 03/31/17) Past Medical History Bipolar Disorder Anxiety Past Surgical History Appendectomy Reported Medications I attest I obtained, reviewed or updated pts home meds and current meds (for name, dose, freq, route of administration) Reported Meds & Active Scripts Active Ultram (Tramadol HCl) 50 Mg Tab 50 Mg PO Q4H PRN Bactrim DS (Sulfamethoxazole-Trimethoprim) 800-160 Mg Tab 1 Tab PO BID Active Ordered Medications Current Medications Medications (Trade) Dose Ordered Sig/Enoc Route Start Time Stop Time Status Last Admin Ampicillin Sodium/ Sulbactam Sodium 3 gm/Sodium Chloride 100 ml @ 200 mls/hr Q6H IV 04/01/17 22:00 04/02/17 17:47 Pharmacy Profile Note 0 ml @ 0 mls/hr UNSCH OTHER 04/01/17 20:45 Sodium Chloride 1,000 ml @ 100 mls/hr Q10H IV 04/01/17 20:38 04/02/17 16:38 (NS Flush) 2 ml UNSCH PRN IV FLUSH 04/01/17 20:45 (NS Flush) 2 ml BID IV FLUSH 04/01/17 21:00 04/02/17 09:00 (Zofran Inj) 4 mg Q6H PRN IVP 04/01/17 20:45 (Morphine Inj) 2 mg Q3H PRN IV PUSH 04/01/17 20:45 04/02/17 09:17 (Roxicodone) 5 mg Q4H PRN PO 04/01/17 20:45 04/02/17 13:00 (Perri-Colace) 1 tab BID PO 04/01/17 21:00 (Milk Of Magnesia Liq) 30 ml Q12H PRN PO 04/01/17 20:45 (Senokot) 17.2 mg Q12H PRN PO 04/01/17 20:45 (Dulcolax Supp) 10 mg DAILY PRN RECTAL 04/01/17 20:45 (Lactulose Liq) 30 ml DAILY PRN PO 04/01/17 20:45 Vancomycin HCl 1250 mg/Sodium Chloride 262.5 ml @ 250 mls/hr Q12H IV 04/02/17 06:00 04/02/17 18:57 Miscellaneous Information SPECIFIC LAB TO BE DRAWN:[facility]... ONCE ONCE .XX 04/03/17 05:45 04/03/17 05:46 Family History reviewed and NC to current ID problems. Social History occ alcohol. No smoking. No illicit drugs. Physical Exam Vital Signs Vital Signs Date Time Temp Pulse Resp B/P (MAP) Pulse Ox O2 Delivery O2 Flow Rate FiO2 04/02/17 12:00 98.2 100 18 121/91 (101) 98 04/02/17 09:22 20 04/02/17 08:00 98.2 76 18 114/68 (83) 100 04/02/17 04:00 98.4 89 20 109/59 (76) 99 04/02/17 00:00 98.1 104 20 120/68 (85) 99 04/01/17 21:39 80 16 130/76 (94) 99 04/01/17 20:00 97.2 105 20 120/68 (85) 99 04/01/17 20:00 130 04/01/17 17:57 120 19 04/01/17 17:24 99.7 145 22 137/98 (111) 99 Physical Exam GENERAL: This is a well-nourished, well-developed patient, in no apparent distress. SKIN: No rashes, ecchymoses or lesions. Cool and dry. Face: left side facial swelling, swelling of upper and lower eyelid, central lesion with scabbing. Left cheek swelling. Shotty LNs enlarged in neck. HEAD: Atraumatic. Normocephalic. No temporal or scalp tenderness. EYES: Pupils equal round and reactive. Extraocular motions intact. No scleral icterus. No injection or drainage. ENT: Nose without bleeding, purulent drainage or septal hematoma. Throat without erythema, tonsillar hypertrophy or exudate. Uvula midline. Airway patent. NECK: Trachea midline. No JVD or lymphadenopathy. Supple, nontender, no meningeal signs. CARDIOVASCULAR: Regular rate and rhythm without murmurs, gallops, or rubs. RESPIRATORY: Clear to auscultation. Breath sounds equal bilaterally. No wheezes , rales, or rhonchi. GASTROINTESTINAL: Abdomen soft, non-tender, nondistended. No hepato-splenomegaly , or palpable masses. No guarding. MUSCULOSKELETAL: Extremities without clubbing, cyanosis, or edema. No joint tenderness, effusion, or edema noted. No calf tenderness. Negative Homans sign bilaterally. NEUROLOGICAL: Awake and alert. Cranial nerves II through XII intact. Motor and sensory grossly within normal limits. Five out of 5 muscle strength in all muscle groups. Normal speech. Psych cooperative IV line sites with no e.o infection. Laboratory Laboratory Tests Test 04/01/17 18:30 04/01/17 23:50 04/02/17 06:25 04/02/17 10:43 White Blood Count 16.1 11.0 Red Blood Count 4.66 4.38 Hemoglobin 14.0 13.4 Hematocrit 42.5 40.2 Mean Corpuscular Volume 91.2 91.8 Mean Corpuscular Hemoglobin 30.1 30.6 Mean Corpuscular Hemoglobin Concent 33.1 33.3 Red Cell Distribution Width 13.5 13.5 Platelet Count 413 363 Mean Platelet Volume 9.5 9.3 Neutrophils (%) (Auto) 77.8 65.9 Lymphocytes (%) (Auto) 12.6 21.7 Monocytes (%) (Auto) 8.4 6.8 Eosinophils (%) (Auto) 0.8 4.8 Basophils (%) (Auto) 0.4 0.8 Neutrophils # (Auto) 12.5 7.2 Lymphocytes # (Auto) 2.0 2.4 Monocytes # (Auto) 1.3 0.8 Eosinophils # (Auto) 0.1 0.5 Basophils # (Auto) 0.1 0.1 CBC Comment DIFF FINAL DIFF FINAL Differential Comment Blood Urea Nitrogen 7 10 Creatinine 0.90 0.74 Random Glucose 91 78 Calcium Level 9.4 9.1 Sodium Level 134 138 Potassium Level 3.3 3.3 Chloride Level 99 106 Carbon Dioxide Level 25.8 20.4 Anion Gap 9 12 Estimat Glomerular Filtration Rate 79 99 Lactic Acid Level 2.2 1.3 Total Protein 7.4 Albumin 3.4 Alkaline Phosphatase 97 Aspartate Amino Transf (AST/SGOT) 8 Alanine Aminotransferase (ALT/SGPT) 24 Total Bilirubin 0.2 Vancomycin Level Trough 5.3 Date/Time Source Procedure Growth Status 04/01/17 18:30 Blood Peripheral Aerobic Blood Culture - Preliminary NO GROWTH IN 1 DAY Resulted 04/01/17 18:30 Blood Peripheral Anaerobic Blood Culture - Preliminary NO GROWTH IN 1 DAY Resulted Result Diagram: 04/02/17 1043 04/02/17 0625 Imaging Last Impressions Neck CT 04/01/17 0000 Signed Impressions: Service Date/Time: Saturday, April 01, 2017 19:42 - CONCLUSION: 1. Extensive left-sided facial swelling extending into the anterior neck with nonloculated fluid present. No discrete or drainable abscess. Findings characteristic of a diffuse cellulitis. There is preseptal periorbital soft tissue swelling. Globes intact. No significant sinus disease. Multiple enlarged lymph nodes in the left neck measure 2 cm in diameter. Elver Barcenas MD Assessment and Plan Assessment and Plan Left facial cellulitis Preseptal orbit area cellulitis left side.Eye movts intact. Bipolar disorder by history. Recs DC Unasyn IV Continue Vanco IV Follow cultures Follow clinically. compa Rubio, pt Phoebe Parr MD Apr 02, 2017 17:22
[2017-04-02] MEDS ORDERED: CLINDAMYCIN INJ 600 MG in SODIUM CHLORIDE 0.9% INJ 100 ML IV SCH (18:00)
[2017-04-03] VITALS: BP 105/56; PULSE 96; RESP 18; TEMP 97.7; O2SAT 99
[2017-04-03] MEDS ORDERED: PHARMACY ORDERED LAB ONE (05:45)
[2017-04-03] MEDS: VANCOMYCIN INJ 1,250 MG in SODIUM CHLOR 0.9% 250 ML INJ 250 ML IV SCH (06:19)
[2017-04-03 07:58] VITALS: PULSE 75
[2017-04-03 08:00] VITALS: BP 99/49; PULSE 85; RESP 17; TEMP 97.9; O2SAT 99
[2017-04-03] MEDS: SODIUM CHLORIDE 0.9% FLUSH 10 ML FLUSH IV FLUSH SCH ×2 (09:00→19:47)
[2017-04-03] MEDS: DOCUSATE SODIUM 50 MG/SENNA 8.6 MG TAB PO SCH ×2 (09:00→19:47)
[2017-04-03 10:06] LABS: BICARBONATE 23.7 MEQ/L (21.0-32.0)
--- NOTE | 2017-04-03 10:09 | HHI.PR ---
Subjective Remarks Pt has no complaints. Friend laying in bed w her. He answers most questions and encourages her to answer my questions. Initially she covers her face up Denies worsening pain, nausea or vomiting or diarrhea. Objective Vitals Vital Signs Date Time Temp Pulse Resp B/P (MAP) Pulse Ox O2 Delivery O2 Flow Rate FiO2 04/03/17 08:00 97.9 85 17 99/49 (66) 99 04/03/17 00:00 97.7 96 18 105/56 (72) 99 04/02/17 20:00 97.6 85 20 113/66 (82) 99 04/02/17 19:59 92 04/02/17 16:00 97.7 100 18 118/59 (78) 99 04/02/17 14:00 20 04/02/17 12:00 98.2 100 18 121/91 (101) 98 I/O 04/02/17 04/02/17 04/02/17 04/03/17 04/03/17 04/03/17 07:00 15:00 23:00 07:00 15:00 23:00 Intake Total 2300 ml 640 ml Balance 2300 ml 640 ml Intake Oral 1200 ml 640 ml IV Total 1100 ml # Voids 1 3 1 # Bowel Movements 0 0 0 Result Diagram: 04/02/17 1043 04/02/17 0625 Imaging Last Impressions Neck CT 04/01/17 0000 Signed Impressions: Service Date/Time: Saturday, April 01, 2017 19:42 - CONCLUSION: 1. Extensive left-sided facial swelling extending into the anterior neck with nonloculated fluid present. No discrete or drainable abscess. Findings characteristic of a diffuse cellulitis. There is preseptal periorbital soft tissue swelling. Globes intact. No significant sinus disease. Multiple enlarged lymph nodes in the left neck measure 2 cm in diameter. Elver Barcenas MD Objective Remarks GENERAL: Young white female in no acute distress. HEENT: Extensive left-sided facial/periorbital swelling and erythema extending to left neck however it is much better compared to yesterday especially the erythema which seems to have resolved she is now able to open her left eye.EOMI. CARDIOVASCULAR: Regular rate and rhythm. No obvious murmurs to auscultation. No chest tenderness to palpation. RESPIRATORY: No obvious rhonchi or wheezing. Clear to auscultation. Breath sounds equal bilaterally. GASTROINTESTINAL: Abdomen soft, non-tender, nondistended. BS normal. MUSCULOSKELETAL: Extremities without edema. No obvious deformities. NEUROLOGICAL: Awake, alert and oriented x4. mainly laying on her left side pulling cover over her head, moves all extremities. A/P Problem List: (1) Sepsis ICD Code: A41.9 - Sepsis, unspecified organism (2) Facial cellulitis ICD Code: L03.211 - Cellulitis of face (3) Hypokalemia ICD Code: E87.6 - Hypokalemia Assessment and Plan 1. Sepsis: Temp 99.7, HR 140's, WBC 16, Source-Left Facial Cellulitis. blood cx neg x 1 day, IV Vanc in ER. was on vanco and unasyn. ID evaluated the patient and recommends only IV vanc for now. Monitor Cr function . Pt able to open her left eyelids, EOMI. Swelling and erythema are improving. Appreciate recs from ID. Blood cx neg x 1 day 2. Facial Cellulitis: CT Neck w/ extensive facial cellulitis extending to anterior neck w/ no discrete abscess noted, also there is pre-septal swelling. Analgesics/antiemetics as needed. if worsening, will consult maxillo-facial sx. 3. Hypokalemia: resolved 4. DVT Prophylaxis: SCD/Teds/encouraged ambulation Discharge Planning d/c pending further work-up and clinical improvement. Ashli Montes MD Apr 03, 2017 10:09
[2017-04-03 10:12] LABS: AUTOMATED NEUTROPHIL # 3.6 TH/MM3 (1.8-7.7); BASOPHIL # 0.1 TH/MM3 (0-0.2); EOSINOPHIL # 0.5 TH/MM3 (0-0.4); EOSINOPHIL % 7.6 % (0.0-4.0); HEMO FLAGS DIFF FINAL; LYMPHOCYTE # 2.1 TH/MM3 (1.0-4.8); MEAN CELL VOLUME 91.9 FL (80.0-100.0); MEAN CORPUSCULAR HEMOGLOBIN 30.8 PG (27.0-34.0); MEAN CORPUSCULAR HGB CONC 33.5 % (32.0-36.0); NEUT % 53.4 % (16.0-70.0); PLATELET COUNT 316 TH/MM3 (150-450); RED BLOOD COUNT 4.03 MIL/MM3 (4.00-5.30); RED CELL DISTRIBUTION WIDTH 13.5 % (11.6-17.2); WHITE BLOOD COUNT 6.7 TH/MM3 (4.0-11.0)
[2017-04-03 12:00] VITALS: BP 124/76; PULSE 84; RESP 18; TEMP 97.7; O2SAT 100
[2017-04-03] MEDS: VANCOMYCIN INJ 1,000 MG in SODIUM CHLOR 0.9% 250 ML INJ 250 ML IV SCH ×2 (14:00→21:54)
[2017-04-03 20:00] VITALS: BP 128/76; PULSE 106; RESP 18; TEMP 99.3; O2SAT 100
[2017-04-03 20:14] VITALS: PULSE 118
[2017-04-04] VITALS: BP 133/63; PULSE 123; RESP 16; TEMP 99.1; O2SAT 98
[2017-04-04 04:00] VITALS: BP 135/80; PULSE 94; RESP 18; TEMP 97; O2SAT 97
[2017-04-04] MEDS ORDERED: PHARMACY ORDERED LAB ONE (05:45)
[2017-04-04] MEDS: VANCOMYCIN INJ 1,000 MG in SODIUM CHLOR 0.9% 250 ML INJ 250 ML IV SCH ×2 (06:00→14:00)
[2017-04-04 08:00] VITALS: BP 132/74; PULSE 93; PULSE 95; RESP 20; TEMP 98.2; O2SAT 100
[2017-04-04] MEDS: SODIUM CHLORIDE 0.9% FLUSH 10 ML FLUSH IV FLUSH SCH (08:59)
[2017-04-04] MEDS: DOCUSATE SODIUM 50 MG/SENNA 8.6 MG TAB PO SCH (08:59)
[2017-04-04 12:10] VITALS: BP 133/87; PULSE 92; RESP 17; TEMP 98; O2SAT 97
--- NOTE | 2017-04-04 13:37 | HHI.IDPN ---
Subjective Subjective Remarks History of Present Illness is a 21y/o CF with PMH of Bipolar Disorder and Anxiety presented to the ER with complaints of left facial swelling and redness. Was seen in ER for similar complaints on 03/31/17, d/c'd w/ Bactrim and Tramadol. Returns today w/ progressive redness/swelling of left face. Denies fever or chills. No injury/ trauma or skin break that she can recall. On arrival, BP 137/98, HR 145, O2 sat 99% on RA, Temp 99.7. WBC 16.1. Chemistry unremarkable except for K+ 3.3. CT Neck with extensive left-sided facial swelling extending to anterior neck with nonloculated fluid present, no discrete drainable abscess, findings s/o diffuse cellulitis. S/p Vanc IV in ER. Pt has recd 1 dose of Clinda, then placed on Unasyn and Vanco IV. ID consulted for evaluation and Mment of left facial cellulitis. Overnight events reviewed No fevers No rash No diarrhea Facial swelling much improved Able to open her eyes spontaneously. Reports discoloration under lower eyelid ( I explained this is expected as cellulitis resolves will resolve over time) Antibiotics Vanco IV Lines Line sites with no e.o infection Past Medical History reviewed Allergies: Coded Allergies: acetaminophen (Unverified Allergy, Unknown, 03/31/17) Objective . Vital Signs Date Time Temp Pulse Resp B/P (MAP) Pulse Ox O2 Delivery O2 Flow Rate FiO2 04/04/17 12:10 98.0 92 17 133/87 (102) 97 04/04/17 08:00 95 04/04/17 08:00 98.2 93 20 132/74 (93) 100 04/04/17 04:00 97.0 94 18 135/80 (98) 97 04/04/17 00:00 99.1 123 16 133/63 (86) 98 04/03/17 20:14 118 04/03/17 20:00 99.3 106 18 128/76 (93) 100 04/03/17 14:15 20 . Laboratory Tests Test 04/03/17 08:42 White Blood Count 6.7 TH/MM3 Red Blood Count 4.03 MIL/MM3 Hemoglobin 12.4 GM/DL Hematocrit 37.0 % Mean Corpuscular Volume 91.9 FL Mean Corpuscular Hemoglobin 30.8 PG Mean Corpuscular Hemoglobin Concent 33.5 % Red Cell Distribution Width 13.5 % Platelet Count 316 TH/MM3 Mean Platelet Volume 9.1 FL Neutrophils (%) (Auto) 53.4 % Lymphocytes (%) (Auto) 31.0 % Monocytes (%) (Auto) 7.0 % Eosinophils (%) (Auto) 7.6 % Basophils (%) (Auto) 1.0 % Neutrophils # (Auto) 3.6 TH/MM3 Lymphocytes # (Auto) 2.1 TH/MM3 Monocytes # (Auto) 0.5 TH/MM3 Eosinophils # (Auto) 0.5 TH/MM3 Basophils # (Auto) 0.1 TH/MM3 CBC Comment DIFF FINAL Differential Comment Laboratory Tests Test 04/03/17 08:42 Blood Urea Nitrogen 4 MG/DL Creatinine 0.50 MG/DL Random Glucose 78 MG/DL Calcium Level 8.7 MG/DL Sodium Level 140 MEQ/L Potassium Level 4.0 MEQ/L Chloride Level 109 MEQ/L Carbon Dioxide Level 23.7 MEQ/L Anion Gap 7 MEQ/L Estimat Glomerular Filtration Rate 156 ML/MIN Microbiology Date/Time Source Procedure Growth Status 04/01/17 18:30 Blood Peripheral Aerobic Blood Culture - Preliminary NO GROWTH IN 3 DAYS Resulted 04/01/17 18:30 Blood Peripheral Anaerobic Blood Culture - Preliminary NO GROWTH IN 3 DAYS Resulted 04/01/17 18:26 Blood Peripheral Aerobic Blood Culture - Preliminary NO GROWTH IN 3 DAYS Resulted 04/01/17 18:26 Blood Peripheral Anaerobic Blood Culture - Preliminary NO GROWTH IN 3 DAYS Resulted Imaging Last Impressions Neck CT 04/01/17 0000 Signed Impressions: Service Date/Time: Saturday, April 01, 2017 19:42 - CONCLUSION: 1. Extensive left-sided facial swelling extending into the anterior neck with nonloculated fluid present. No discrete or drainable abscess. Findings characteristic of a diffuse cellulitis. There is preseptal periorbital soft tissue swelling. Globes intact. No significant sinus disease. Multiple enlarged lymph nodes in the left neck measure 2 cm in diameter. Elver Barcenas MD Physical Exam GENERAL: This is a well-nourished, well-developed patient, in no apparent distress. SKIN: No rashes, ecchymoses or lesions. Cool and dry. Face: left side facial swelling 95% improved with minimal cheek erythema and induration. HEAD: Atraumatic. Normocephalic. No temporal or scalp tenderness. EYES: Pupils equal round and reactive. Extraocular motions intact. No scleral icterus. No injection or drainage. ENT: Nose without bleeding, purulent drainage or septal hematoma. Throat without erythema, tonsillar hypertrophy or exudate. Uvula midline. Airway patent. NECK: Trachea midline. No JVD or lymphadenopathy. Supple, nontender, no meningeal signs. CARDIOVASCULAR: Regular rate and rhythm without murmurs, gallops, or rubs. RESPIRATORY: Clear to auscultation. Breath sounds equal bilaterally. No wheezes , rales, or rhonchi. GASTROINTESTINAL: Abdomen soft, non-tender, nondistended. MUSCULOSKELETAL: Extremities without clubbing, cyanosis, or edema. No joint tenderness, effusion, or edema noted. No calf tenderness. Negative Homans sign bilaterally. NEUROLOGICAL: Awake and alert. Cranial nerves II through XII intact. Motor and sensory grossly within normal limits. Five out of 5 muscle strength in all muscle groups. Normal speech. Psych cooperative IV line sites with no e.o infection. Assessment & Plan Remarks Left facial cellulitis Preseptal orbit area cellulitis left side.Eye movts intact. Bipolar disorder by history. Recs DC Vanco IV Discharge on oral bactrim and keflex for 7 more days. Follow cultures Follow clinically. d.w , pt d/w rehab manager to help pt with home meds. Will sign off please call back if any change in clinical condition or questions. Phoebe Parr MD Apr 04, 2017 13:37
[2017-04-04] MEDS ORDERED: CEPH-461 PO (13:47)
[2017-04-04] MEDS ORDERED: ULTR50TA5 PO (13:47)
[2017-04-04] MEDS ORDERED: BACT800T5 PO (13:47)
[2017-04-04] MEDS ORDERED: CEPH-460 PO ×2 (13:52→13:55)
--- NOTE | 2017-04-04 13:53 | HHI.DS ---
Discharge Summary Admission Date Apr 01, 2017 at 20:30 Discharge Date: Apr 04, 2017 Admitting Diagnosis left facial cellulitis (1) Sepsis ICD Code: A41.9 - Sepsis, unspecified organism (2) Facial cellulitis ICD Code: L03.211 - Cellulitis of face (3) Hypokalemia ICD Code: E87.6 - Hypokalemia Procedures none Brief History - From Admission This is a 21-year-old female with a PMH of Bipolar Disorder and Anxiety presented to the ER with complaints of left facial swelling and redness. Was seen in ER for similar complaints on 03/31/17, d/c'd w/ Bactrim and Tramadol. Returns today w/ progressive redness/swelling of left face. Denies fever or chills. No injury/trauma or skin break that she can recall. On arrival, BP 137 /98, HR 145, O2 sat 99% on RA, Temp 99.7. WBC 16.1. Chemistry unremarkable except for K+ 3.3. CT Neck with extensive left-sided facial swelling extending to anterior neck with nonloculated fluid present, no discrete drainable abscess , findings could or sick of diffuse cellulitis. S/p Vanc IV in ER. CBC/BMP: 04/03/17 0842 04/03/17 0842 Significant Findings Laboratory Tests Test 04/01/17 18:30 04/01/17 23:50 04/02/17 06:25 04/02/17 10:43 White Blood Count 16.1 TH/MM3 (4.0-11.0) Neutrophils (%) (Auto) 77.8 % (16.0-70.0) Monocytes (%) (Auto) 8.4 % (0.0-8.0) Neutrophils # (Auto) 12.5 TH/MM3 (1.8-7.7) Monocytes # (Auto) 1.3 TH/MM3 (0-0.9) Sodium Level 134 MEQ/L (136-145) Potassium Level 3.3 MEQ/L (3.5-5.1) 3.3 MEQ/L (3.5-5.1) Estimat Glomerular Filtration Rate 79 ML/MIN (>89) Lactic Acid Level 2.2 mmol/L (0.4-2.0) Aspartate Amino Transf (AST/SGOT) 8 U/L (15-37) Carbon Dioxide Level 20.4 MEQ/L (21.0-32.0) Eosinophils (%) (Auto) 4.8 % (0.0-4.0) Eosinophils # (Auto) 0.5 TH/MM3 (0-0.4) Test 04/03/17 06:15 04/03/17 08:42 04/04/17 06:33 Eosinophils (%) (Auto) 7.6 % (0.0-4.0) Eosinophils # (Auto) 0.5 TH/MM3 (0-0.4) Blood Urea Nitrogen 4 MG/DL (7-18) Chloride Level 109 MEQ/L (98-107) Vancomycin Level Trough 10.7 MCG/ML (5.0-10.0) Imaging Last Impressions Neck CT 04/01/17 0000 Signed Impressions: Service Date/Time: Saturday, April 01, 2017 19:42 - CONCLUSION: 1. Extensive left-sided facial swelling extending into the anterior neck with nonloculated fluid present. No discrete or drainable abscess. Findings characteristic of a diffuse cellulitis. There is preseptal periorbital soft tissue swelling. Globes intact. No significant sinus disease. Multiple enlarged lymph nodes in the left neck measure 2 cm in diameter. Elver Barcenas MD PE at Discharge GENERAL: Young white female in no acute distress. HEENT: Extensive left-sided facial/periorbital swelling and erythema extending to left neck however it is much better compared to yesterday especially the erythema which seems to have resolved she is now able to open her left eye.EOMI. CARDIOVASCULAR: Regular rate and rhythm. No obvious murmurs to auscultation. No chest tenderness to palpation. RESPIRATORY: No obvious rhonchi or wheezing. Clear to auscultation. Breath sounds equal bilaterally. GASTROINTESTINAL: Abdomen soft, non-tender, nondistended. BS normal. MUSCULOSKELETAL: Extremities without edema. No obvious deformities. NEUROLOGICAL: Awake, alert and oriented x4. mainly laying on her left side pulling cover over her head, moves all extremities. Pt update on day of discharge Pt feeling much better, states swelling is much improved. now can open her left eye w no difficulty. no pain, nausea or vomiting Hospital Course 1. Sepsis: Temp 99.7, HR 140's, WBC 16, Source-Left Facial Cellulitis. blood cx neg x 3 days, was on vanco and unasyn. ID evaluated the patient and recommended only IV vanc while in hospital. Pt has been cleared for discharge from an ID standpoint as she responded very well to vanco. Recs are to discharge her on keflex and bactrim x 7 days. Appreciate recs from ID. 2. Facial Cellulitis: CT Neck w/ extensive facial cellulitis extending to anterior neck w/ no discrete abscess noted, also there is pre-septal swelling. continue pain meds as needed 3. Hypokalemia: resolved Pt Condition on Discharge: Stable Discharge Disposition: Discharge Home Discharge Time: > 30 minutes Discharge Instructions Follow up Referrals: PCP Follow-up - 1 Week New Medications: Cephalexin (Keflex) 500 Mg Cap 500 MG PO Q8H for Infection for 7 Days, #21 CAP 0 Refills Changed Medications: Tramadol (Ultram) 50 Mg Tab 50 MG PO Q4-6H PRN for PAIN, #12 TAB 0 Refills (Changed from: Q4H) Continued Medications: Sulfamethoxazole-Trimethoprim (Bactrim DS) 800-160 Mg Tab 1 TAB PO BID for Infection for 7 Days, #14 TAB 0 Refills (This prescription has been renewed) Ashli Montes MD Apr 04, 2017 13:53
== END 2017-04-04 17:03 | disposition home or self-care (01) | DRG 872 ==
LOC: NEPC 17:21 → NEDA 20:30 → N04A 21:44
PROVIDERS: ADMIT Hospitalist; ATTEND Hospitalist
DX: A41.9 Sepsis, unspecified organism (principal); L03.211 Cellulitis of face; E87.6 Hypokalemia; F31.9 Bipolar disorder, unspecified; F41.9 Anxiety disorder, unspecified; J45.909 Unspecified asthma, uncomplicated
CPT/HCPCS: 70491; 80048; 80053; 80202; 83605; 85025; 87040; 96365; 96366; 96375; J0295; J1885; J2270; J3370; J7030; J7050; Q9967